=== PATIENT | male | born 1955 | race Two or more races ===

== ENCOUNTER → 2023-07-27 10:52 | Outpatient (CLI) | payer OTHER ==
[2023-07-29 10:07] LABS: LEUTEINIZING HORMONE 11.7 mIU/mL (1.7-8.6)
== END | disposition home or self-care (01) ==
LOC: LAB 10:52
PROVIDERS: ATTEND Urology
DX: F52.9 Unspecified sexual dysfunction not due to a substance or known physiological condition (principal); E29.1 Testicular hypofunction